=== PATIENT | female | born 1975 | race Caucasian/White ===

== ENCOUNTER 2017-10-07 08:42 | Outpatient (CLI) | payer BC | END 2017-10-07 08:43 | disposition home or self-care (01) | LOC: BICMAMMO 08:42 | PROVIDERS: ATTEND Obstetrics & Gynecology | DX: Z12.31 Encounter for screening mammogram for malignant neoplasm of breast (principal); R92.1 Mammographic calcification found on diagnostic imaging of breast; Z80.3 Family history of malignant neoplasm of breast | CPT/HCPCS: 77063; 77067 ==

== ENCOUNTER 2018-12-10 12:47 | Outpatient (CLI) | payer BC ==
--- NOTE | 2018-12-10 14:09 | MMO ---
Bilateral MAMMO Bilat Screen [facility]. CLINICAL HISTORY: Patient is 43 years old and is seen for screening. The patient has the following family history of breast cancer: mother, at age 60. The patient has no personal history of cancer. VIEWS: The views performed were: bilateral craniocaudal with tomosynthesis and bilateral mediolateral oblique with tomosynthesis. FILMS COMPARED: The present examination has been compared to prior imaging studies performed at [facility] on 09/20/2015, 09/27/2016 and 10/07/2017. MAMMOGRAM FINDINGS: There are stable benign appearing calcifications seen in both breasts. There are no suspicious masses, suspicious calcifications, or new areas of architectural distortion. IMPRESSION: THERE IS NO MAMMOGRAPHIC EVIDENCE OF MALIGNANCY. A ROUTINE FOLLOW-UP MAMMOGRAM IN 1 YEAR IS RECOMMENDED. THE RESULTS OF THIS EXAM WERE SENT TO THE PATIENT. ACR BI-RADS Category 2 - Benign finding MAMMOGRAPHY NOTE: 1. A negative mammogram report should not delay a biopsy if a dominant of clinically suspicious mass is present. 2. Approximately 10% to 15% of breast cancers are not detected by mammography. 3. Adenosis and dense breasts may obscure an underlying neoplasm.
== END 2018-12-10 12:48 | disposition home or self-care (01) ==
LOC: BICMAMMO 12:47
PROVIDERS: ATTEND Obstetrics & Gynecology
DX: Z12.31 Encounter for screening mammogram for malignant neoplasm of breast (principal); Z80.3 Family history of malignant neoplasm of breast
CPT/HCPCS: 77063; 77067

== ENCOUNTER 2021-11-30 17:06 | Inpatient (IN) | payer BC ==
[2021-11-30 17:48] VITALS: BMI 33.4
[2021-11-30] MEDS ORDERED: Bisacodyl 5 MG TAB PO PRN (18:48)
[2021-11-30] MEDS ORDERED: Senokot S 8.6-50 MG TAB PO PRN (18:48)
[2021-11-30] MEDS ORDERED: Acetaminophen 325 MG TAB PO PRN (18:48)
[2021-11-30] MEDS ORDERED: Melatonin 3 MG TAB PO PRN (18:53)
[2021-11-30] MEDS ORDERED: Dexamethasone 10 MG/ML VIAL SLOW IVP SCH (19:30)
[2021-11-30] MEDS: Sodium Chloride 0.9% 1,000 ML IV SCH (20:49)
[2021-12-01 05:35] LABS: Mean Corpuscular HGB CONC 32.2 g/dL (32.0-36.0); Mean Corpuscular Hemoglobin 31.8 pg (27.0-31.0); Mean Corpuscular Volume 98.8 fL (78.0-98.0); Mean Platelet Volume 10.5 fL (7.4-10.4); Platelet Count 16 thou/uL (130-400); RBC Distribution Width 12.1 % (11.5-14.5); White Blood Cell (WBC) Count 14.2 thou/uL (4.8-10.8)
[2021-12-01 05:36] LABS: #Lymphocytes 0.8 thou/uL (1.20-3.40); #Monocytes 0.2 thou/uL (0.11-0.59); #Neutrophils 13.2 thou/uL (1.40-6.50); %Eosinophils 0.1 % (0.0-10.0); %Lymphocytes 5.6 % (21.0-51.0); %Monocytes 1.7 % (0.0-10.0); %Neutrophils 92.6 % (42.0-75.0)
[2021-12-01] MEDS: Levothyroxine Sodium 125 MCG TAB PO SCH (05:42)
[2021-12-01 05:49] LABS: ALT (SGPT) 28 U/L (8-55); AST (SGOT) 21 U/L (5-34); Alkaline Phosphatase 51 U/L (40-110); Anion Gap 12 mmol/L (10-20); BUN (Urea Nitrogen) 13 mg/dL (7.0-18.7); Bilirubin, Total 0.9 mg/dL (0.2-1.2); Calc. Creatinine Clearance 148 mL/min (70-130); Calcium 8.8 mg/dL (7.8-10.44); Carbon Dioxide 22 mmol/L (22-29); Chloride 107 mmol/L (98-107); Globulin 2.8 g/dL (2.4-3.5); Glucose 160 mg/dL (70-105); Potassium 3.8 mmol/L (3.5-5.1); Protein, Total 6.8 g/dL (6.0-8.3); Sodium 137 mmol/L (136-145)
[2021-12-01] MEDS: Dexamethasone 10 MG/ML VIAL SLOW IVP SCH (07:59)
[2021-12-01] MEDS: Sodium Chloride 0.9% 1,000 ML IV SCH ×2 (07:59→22:51)
[2021-12-01 10:18] LABS: Reticulocyte Count 1.8 % (0.5-1.5)
[2021-12-01 11:00] LABS: HBCM Index 0.07 S/CO (0-0.79); HBSAg Index 0.22 S/CO (0-0.99); HIV (1/2) Antibody/Antigen Non-Reactive (NonReactive); HIV 1/2 INDEX 0.14 S/CO (<1.00); Hep A IgM AB Non-Reactive (NonReactive); Hep A IgM S/CO 0.22 S/CO (0-0.79); Hep B Surf Ag Non-Reactive S/CO (NonReactive); Hep C IgG Ab Non-Reactive (NonReactive); Hep C Index 0.05 S/CO (0-0.79); Hepatitis B Core IgM Abs Non-Reactive (NonReactive)
[2021-12-02 05:55] LABS: Band 5 % (5-11); Hemoglobin 14.2 g/dL (12.0-16.0); Lymphocytes 8 % (21-51); MDiff Complete? YES; Mean Corpuscular HGB CONC 32.9 g/dL (32.0-36.0); Mean Corpuscular Hemoglobin 32.3 pg (27.0-31.0); Monocytes 1 % (0-10); Neutrophil 86 % (42-75); Platelet Count 56 thou/uL (130-400); Platelet Morphology Comment Appears Decreased; RBC Distribution Width 12.1 % (11.5-14.5); RBC Morphology Normal; White Blood Cell (WBC) Count 22.5 thou/uL (4.8-10.8)
[2021-12-02] MEDS: Levothyroxine Sodium 125 MCG TAB PO SCH (06:15)
[2021-12-02] MEDS: Dexamethasone 10 MG/ML VIAL SLOW IVP SCH (09:20)
[2021-12-02 09:28] VITALS: BP 116/55; TEMP 98.1
[2021-12-04 11:49] LABS: ANA Symphony (Qualitative) Negative (Negative); ANA Symphony (Quantitative) 0.2 Ratio (< 0.7 Negative); dsDNA IgG Antibody 0.7 IU/mL (<10 Negative)
== END 2021-12-02 11:02 | disposition home or self-care (01) | DRG 813 ==
LOC: MSONC 17:16
PROVIDERS: ADMIT Family Medicine; ATTEND Internal Medicine
DX: D69.3 Immune thrombocytopenic purpura (principal); Z20.822 Contact with and (suspected) exposure to COVID-19; E03.9 Hypothyroidism, unspecified; E28.2 Polycystic ovarian syndrome; G43.109 Migraine with aura, not intractable, without status migrainosus; D72.829 Elevated white blood cell count, unspecified; T38.0X5A Adverse effect of glucocorticoids and synthetic analogues, initial encounter; Z79.899 Other long term (current) drug therapy; Z79.890 Hormone replacement therapy; Z87.891 Personal history of nicotine dependence; Z82.3 Family history of stroke; Z82.49 Family history of ischemic heart disease and other diseases of the circulatory system; Z86.16 Personal history of COVID-19; Z90.49 Acquired absence of other specified parts of digestive tract; Z90.89 Acquired absence of other organs; Z79.84 Long term (current) use of oral hypoglycemic drugs; T14.8XXA Other injury of unspecified body region, initial encounter
CPT/HCPCS: 36415; 80053; 80074; 82728; 83540; 83550; 84443; 85025; 85046; 85060; 86038; 86225; 87389; J1100; J7050

== ENCOUNTER 2021-12-07 14:17 | Day surgery (SDC) | payer BC ==
[2021-12-07] MEDS ORDERED: Acetaminophen 500 MG TAB ONE ×2 (15:44→18:12)
[2021-12-07] MEDS ORDERED: diphenhydrAMINE 25 MG CAP ONE (15:45)
[2021-12-07] MEDS ORDERED: diphenhydrAMINE 50 MG/ML VIAL ONE ×2 (16:22→17:22)
[2021-12-07 16:48] VITALS: BP 97/68; TEMP 97.7
[2021-12-07] MEDS ORDERED: IMMUNE GLOBULIN IVPB SCH (17:00)
[2021-12-07] MEDS ORDERED: Dexamethasone 40 MG in Sodium Chloride 0.9% 50 ML IVPB SCH (17:00)
[2021-12-07 21:32] LABS: Hemoglobin 14.3 g/dL (12.0-16.0); Mean Corpuscular HGB CONC 32.6 g/dL (32.0-36.0); Mean Corpuscular Hemoglobin 32.1 pg (27.0-31.0); Mean Corpuscular Volume 98.3 fL (78.0-98.0); RBC Distribution Width 12.1 % (11.5-14.5); Red Blood Cell (RBC) Count 4.45 mill/uL (4.20-5.40); White Blood Cell (WBC) Count 10.4 thou/uL (4.8-10.8)
[2021-12-07 21:49] LABS: #Eosinphils 0.1 thou/uL (0.0-0.7); #Lymphocytes 0.5 thou/uL (1.20-3.40); #Monocytes 0.2 thou/uL (0.11-0.59); #Neutrophils 9.7 thou/uL (1.40-6.50); %Lymphocytes 4.5 % (21.0-51.0); %Monocytes 1.7 % (0.0-10.0); %Neutrophils 92.9 % (42.0-75.0); Mean Platelet Volume 12.8 fL (7.4-10.4); Platelet Count 5 thou/uL (130-400)
== END 2021-12-07 21:20 | disposition home or self-care (01) ==
LOC: ONC/OP 14:17
PROVIDERS: ATTEND Internal Medicine Hematology & Oncology
PROC: 30233R1 Transfusion of Nonautologous Platelets into Peripheral Vein, Percutaneous Approach (ICD-10-PCS; principal; 2021-12-07)
DX: D69.6 Thrombocytopenia, unspecified (principal); D64.9 Anemia, unspecified; E28.2 Polycystic ovarian syndrome; E03.9 Hypothyroidism, unspecified; D69.3 Immune thrombocytopenic purpura; Z87.891 Personal history of nicotine dependence; Z79.84 Long term (current) use of oral hypoglycemic drugs; Z79.890 Hormone replacement therapy; Z79.899 Other long term (current) drug therapy; Z91.013 Allergy to seafood
CPT/HCPCS: 36430; 85025; 86850; 86900; 86901; J1100; J1200; J1568; P9035

== ENCOUNTER 2021-12-21 09:43 | Emergency (ER) | payer BC ==
[2021-12-21 10:48] LABS: Mean Corpuscular HGB CONC 33.7 g/dL (32.0-36.0); Mean Corpuscular Hemoglobin 32.2 pg (27.0-31.0); Mean Corpuscular Volume 95.6 fL (78.0-98.0); Mean Platelet Volume 11.7 fL (7.4-10.4); Platelet Count 9 thou/uL (130-400); RBC Distribution Width 12.5 % (11.5-14.5); Red Blood Cell (RBC) Count 4.35 mill/uL (4.20-5.40); White Blood Cell (WBC) Count 5.8 thou/uL (4.8-10.8)
[2021-12-21 11:02] LABS: #Basophils 0.1 thou/uL (0.0-0.2); #Eosinphils 0.2 thou/uL (0.0-0.7); #Lymphocytes 1.5 thou/uL (1.20-3.40); #Monocytes 0.4 thou/uL (0.11-0.59); #Neutrophils 3.7 thou/uL (1.40-6.50); %Eosinophils 2.8 % (0.0-10.0); %Lymphocytes 24.9 % (21.0-51.0); %Monocytes 7.3 % (0.0-10.0); Platelet Morphology Comment Appears Decreased
[2021-12-21 11:05] LABS: INR-International Normal Ratio 0.9; PTT 27.2 sec (22.9-36.1); Prothrombin Time 12.4 sec (12.0-14.7)
[2021-12-21] MEDS ORDERED: ADMIXTURE FEE IVPB SCH (11:45)
[2021-12-21] MEDS ORDERED: IMMUNE GLOBULIN IVPB SCH (11:45)
[2021-12-21] MEDS ORDERED: Acetaminophen 500 MG TAB ONE (11:50)
[2021-12-21] MEDS ORDERED: Famotidine 20 MG TAB ONE (11:50)
[2021-12-21] MEDS ORDERED: diphenhydrAMINE 50 MG/ML VIAL ONE (11:50)
== END 2021-12-21 15:53 | disposition home or self-care (01) ==
LOC: ERS 09:43
DX: D69.3 Immune thrombocytopenic purpura (principal); E03.9 Hypothyroidism, unspecified; Z79.84 Long term (current) use of oral hypoglycemic drugs; Z79.899 Other long term (current) drug therapy
CPT/HCPCS: 36415; 36430; 85025; 85610; 85730; 86850; 86900; 86901; 96365; 96366; 96375; J1200; J1568; P9035

== ENCOUNTER 2023-03-13 11:35 | Outpatient (CLI) | payer BC | END 2023-03-13 11:36 | disposition home or self-care (01) | LOC: SCSRAD 11:35 | PROVIDERS: ATTEND Family Medicine | DX: M13.0 Polyarthritis, unspecified (principal) ==